=== PATIENT | female | born 1945 | race Caucasian/White ===

== ENCOUNTER 2021-03-28 08:49 | Emergency (ER) | payer OTHER ==
[~2021-03-28] VITALS: Ht 157.5 cm; Wt 62.6 kg
== END 2021-03-28 12:51 | disposition home or self-care (01) ==
LOC: ER 08:49
DX: E86.0 Dehydration (principal); B96.0 Mycoplasma pneumoniae [M. pneumoniae] as the cause of diseases classified elsewhere; Z11.52 Encounter for screening for COVID-19

== ENCOUNTER 2021-04-11 08:53 | Outpatient (CLI) | payer OTHER | END 2021-04-11 08:58 | disposition home or self-care (01) | LOC: SONOGRAMA 08:53 | DX: R10.84 Generalized abdominal pain (principal); K81.0 Acute cholecystitis ==